=== PATIENT | male | born 1970 | race Hispanic/Latino ===

== ENCOUNTER 2020-06-06 10:14 | Inpatient (IN) | payer BC, SELFPAY ==
[2020-06-06] VITALS (33 sets, daily range): BP systolic 115–222; BP diastolic 69–127; PULSE 61–128; RESP 12–31; TEMP 35.9–37.1; O2SAT 89–99
--- NOTE | ~2020-06-06 | US_ITS ---
EXAMINATION: US right upper quadrant DATE: 06/08/2020 10:42 INDICATION: Abnormal liver function tests. TECHNIQUE: Multiple grayscale and Doppler ultrasound images of the abdomen were obtained. COMPARISON: CT abdomen and pelvis 04/20/2009 FINDINGS: The visualized portions of the head of the pancreas are normal. There is diffuse hepatic st eatosis. No liver surface nodularity. There is normal flow in main portal vein. The gallbladder is no rmal in size. No gallstones or gallbladder wall thickening. There was no sonographic Miramontes sign. The common duct is normal and measures 4 mm. IMPRESSION: 1. Diffuse hepatic steatosis. Reviewed, dictated and finalized at location A.
--- NOTE | ~2020-06-06 | XR_ITS ---
XR chest 2V DATE: 06/08/2020 13:36 INDICATION: Elevated troponin. Seizure. TECHNIQUE: PA and lateral views COMPARISON: 04/20/2009 PA and lateral views FINDINGS: Normal heart size. Mild aortic unfolding. No hilar or mediastinal enlargement. No pulmonary infiltrate or consolidation, pleural effusion or pulmonary vascular congestion or pneumo thorax. IMPRESSION: No active cardiopulmonary disease Reviewed, dictated and finalized at location B.
--- NOTE | ~2020-06-06 | CT_ITS ---
EXAMINATION: CT brain wo [facility] EXAM DATE: 06/06/2020 11:13 INDICATION: Altered mental status. Seizure. TECHNIQUE: Spiral CT of the head was performed without contrast. Axial, coronal and sagittal images were reviewed. The dose-length product (DLP) for this examination was 605.33 mGy-cm. The exposure w as tailored according to patient size, and iterative reconstruction (ASIR) was used as additional dos e reduction technique. There is no prior study for comparison. FINDINGS: Small old right frontoparietal infarction. There is no acute intraparenchymal hemorrhage. No evidence of intraparenchymal brain mass lesion. No evidence of acute infarction. There is no mas s effect or midline shift. The ventricles are normal in size. There are no extra-axial collections. There are no acute calvarial fractures. There is an old right medial orbital wall fracture. Small r ight parietal swelling/contusion. The visualized sinuses and mastoid air cells are well aerated. IMPRESSION: 1. 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 2. Small right parietal swelling/contusion. Reviewed, dictated and finalized at location A.
--- NOTE | 2020-06-06 10:24 | ECG_ITS ---
Measurements Intervals [place] Rate: 62 P: 9 KS: 159 QRS: 66 QRSD: 111 T: 64 QT: 509 QTc: 519 Interpretive Statements SINUS RHYTHM INTRAVENTRICULAR CONDUCTION DELAY PROLONGED QT INTERVAL ABNORMAL ECG Electronically Signed On 06-06-2020 10:36:45 CDT by Connor Rodriguez D.O.
[2020-06-06] MEDS: SODIUM CHLORIDE 0.9% IV 1,000 ML 999 ML IV CONT (10:33)
--- NOTE | 2020-06-06 10:34 | ED.AMS ---
HPI - Altered Mental Status General Chief Complaint: Altered Mental Status Stated Complaint: ALOC Time Seen by Provider: 06/06/20 10:16 History of Present Illness HPI narrative: Found altered by family this morning. Unknown how long he had been this way. Mental status has improved, although he is still somewhat confused. He did bite his tongue. No other obvious injury. He has no seizure history. He is a daily drinker. He drinks beer. Unknown how much or when he had his last drink. No recent illness or fever. Mildly low oxygen saturation. History limited by mental status and language barrier. Related Data Home Medications Medication Instructions Recorded Confirmed losartan 100 mg PO DAILY 06/06/20 06/06/20 Allergies Allergy/AdvReac Type Severity Reaction Status Date / Time No Known Allergies Allergy Unknown Verified 06/06/20 14:24 Review of Systems Review of Systems: All systems reviewed & are unremarkable except as noted in HPI and below Constitutional: Constitutional: Denies fever(s) and Denies weakness Cardiovascular: Cardiovascular: Denies chest pain Respiratory: Respiratory: Denies dyspnea Gastrointestinal: Gastrointestinal: Denies abdominal pain and Denies nausea Musculoskeletal: Musculoskeletal: Denies back pain Neurologic: Reports confusion PMFSH Past Medical History Medical History (Updated 06/06/20 @ 19:10 by Darius Dhaliwal MD) Alcoholism CVA (cerebral vascular accident) HTN (hypertension) Right wrist fracture Tobacco abuse Surgical History Surgical History (Updated 06/06/20 @ 16:12 by Princess Plascencia NP) H/O abdominal surgery the patient stated that horse bucked him off Family History Family History Mother Cancer Father Hypercholesteremia Social History Social History (Updated 06/06/20 @ 16:13 by Princess Plascencia NP) Social History: 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 He is listed as being . He is listed as being a full code. The patient tells me that he drinks 12 beers a day. He denies any marijuana or illicit drug use. Smoking packs per day: 0.1 Smoking cigarettes per day: 2.0 Smoking status: Current some day smoker Tobacco type: cigarettes Second hand tobacco smoke exposure: No Alcohol intake: current Drinks per week: 84 Substance use: never Substance use type: does not use Gender identity (if verbalized by the patient): Male Spiritual care concerns: No Exam Const: General: no acute distress and alert Orientation/consciousness: patient oriented x3 HENMT: Other: contusion to the tip of the tongue Eyes: Pupils: Equal, round and reactive pupils present EOM: EOMs intact bilaterally Resp: Effort & Inspection: normal respiratory effort Auscultation: clear to auscultation bilaterally Cardio: Rate: regular rate Rhythm: regular rhythm GI: GI Palp: Yes Soft to palpation and No Tenderness to palpation present (GI) Neuro: General: moves all extremities, no focal motor deficits and CN's II-XI intact bilaterally Other: Oriented to self and location Extrem: General: normal to inspection Course Vital Signs Vital signs: Vital Signs Temperature 37.1 C 06/06/20 10:16 Pulse Rate 61 06/06/20 10:16 Respiratory Rate 16 06/06/20 10:16 Blood Pressure 186/97 H 06/06/20 10:16 Pulse Oximetry 89 L 06/06/20 10:16 Temperature 35.9 C L 06/06/20 16:00 Pulse Rate 88 06/06/20 16:09 Respiratory Rate 12 06/06/20 16:00 Blood Pressure 189/117 H 06/06/20 16:34 Pulse Oximetry 98 06/06/20 16:00 MDM - Altered Mental Status MDM Narrative Medical decision making narrative: Given the tongue biting and improving confusion he most likely had a seizure. This could be due to alcohol withdrawal, hyponatremia, prolonged QT with resultant arrhythmia. I will obtain CT and labs. He will most likely need to be admitted. CT sh
[2020-06-06 10:53] LABS: Basophils Absolute Auto 0.1 K/mm3 (0.0-0.1); Basophils Percent Auto 1.1 % (0.2-1.2); Eosinophils Percent Auto 0.3 % (0-4.4); Hematocrit 48.4 % (42.0-52.0); Hemoglobin 16.9 g/dL (14.0-18.0); Immature Granulocyte Absolute 0.04 K/mm3 (0.00-0.031); Immature Granulocyte Percent A 0.6 % (0-0.5); Lymphocytes Absolute Auto 0.87 K/mm3 (0.9-3.2); Lymphocytes Percent Auto 13.5 % (18.3-44.2); Mean Corpuscular HGB Conc 34.9 g/dl (32-36); Mean Corpuscular Volume 91.7 fl (80-100); Mean Platelet Volume 9.3 fl (7.4-10.4); Monocytes Absolute Auto 0.7 K/mm3 (0.1-0.6); Monocytes Percent Auto 10.4 % (2.6-8.5); Neutrophils Absolute Auto 4.8 K/mm3 (1.3-6.7); Neutrophils Percent Auto 74.1 % (45.5-73.1); Platelet Count Result 192 k/mm3 (150-375); Red Blood Count 5.28 M/mm3 (4.6-6.20); Red Cell Distribution Width 11.9 % (11.5-14.5); White Blood Count 6.4 K/mm3 (4.5-10.0)
[2020-06-06 11:00] LABS: Alveolar/Arterial O2 Gradient 129.2 mmHg; Base Excess ABG -5.4 mEq/l (+/-2.0); Device NASAL CANNULA; Fractional Inspired Oxygen 36 %; HCO3 ABG 18.3 mEq/l (22.0-26.0); Modified Allen's Test Pass; Oxygen Content ABG 21.7 %vol (16.0-22.0); Oxyhemoglobin 94.9 % THb (90.0-100.0); PCO2 ABG 31.3 mmHg (35.0-45.0); PO2 ABG 91.2 mmHg (80.0-100.0); PO2 FiO2 Ratio Arterial Blood 2.53 %; Site Drawn RIGHT RADIAL; Total Hemoglobin 16.2 g/dL (12.0-18.0); pH ABG 7.384 (7.350-7.450)
[2020-06-06 11:02] LABS: INR 1.1; Prothrombin Time 13.8 Seconds (11.1-14.7)
[2020-06-06 11:03] LABS: Partial Thromboplastin Time 25.8 SECONDS (22.3-36.8)
[2020-06-06 11:04] LABS: Alanine Aminotransferase 88 U/L (4-50); Albumin Level 4.5 g/dL (3.5-5.1); Alkaline Phosphatase 109 U/L (38-126); Anion Gap 19 mmol/L (8-16); Aspartate Amino Transferase 157 U/L (17-59); Blood Urea Nitrogen 9 mg/dL (9-20); Calcium 9.4 mg/dL (8.4-10.2); Carbon Dioxide 21 mmol/L (22-30); Chloride 98 mmol/L (98-107); Estimated CRCL calculation 62 ml/min; Estimated Glomerular Filt Rate 59; Glucose 159 mg/dL (75-110); Magnesium 1.8 mg/dL (1.6-2.3); Potassium 3.5 mmol/L (3.4-5.0); Sodium 138 mmol/L (137-145)
[2020-06-06 11:07] LABS: Lactic Acid Reflex 8.3 mmol/L (0.7-2.1)
[2020-06-06 11:09] LABS: Add Urine Microscopic? YES; Appearance Urine Clear (Clear); Bilirubin Urine Negative (Negative); Blood Urine Negative (Negative); Color Urine Yellow (Yellow); Glucose Urine UA 1+ mg/dL (Negative); Ketones Urine Trace mg/dL (Negative); Leukocyte Esterase Ur Negative LEU/UL (Negative); Mucus Urine Rare /lpf; Nitrate Urine Negative (Negative); Protein Urine 3+ mg/dL (Negative); RBC Urine 0-2 /hpf (0-2); Specific Grav Ur 1.019 (1.001-1.035); Urobilinogen Urine Negative mg/dL (<2.0); WBC Urine 0-3 /hpf
[2020-06-06 11:16] LABS: Ethanol 35 mg/dL (<10)
[2020-06-06 11:18] LABS: Troponin I 0.096 ng/mL (0.000-0.034)
[2020-06-06 11:19] LABS: Amphetamine Screen Urine Negative (Negative); Barbiturate Screen Urine Negative (Negative); Benzodiazepines Screen Urine Negative (Negative); Cannabinoid Screen Urine Negative (Negative); Cocaine Screen Urine Negative (Negative); Methadone Screen Urine Negative (Negative); Opiate Screen Urine Negative (Negative); Phencyclidine Screen Urine Negative (Negative)
[2020-06-06] MEDS: LACTATED RINGERS 1,000 ML 125 ML IV CONT (12:34)
[2020-06-06] MEDS: MAGNESIUM SULF 2 GM/WATER 50ML 2 GM/50 ML BAG IVPB (12:35)
[2020-06-06] MEDS: levETIRAcetam 1000MG/NACL100ML 1,000 MG/100 ML BAG 400 MG IVPB (12:35)
[2020-06-06] MEDS: LORazepam INJ (*CRX) 2 MG/ML VIAL IV PUSH (12:39)
[2020-06-06] MEDS: LABETALOL HCL INJ 100 MG/20 ML VIAL 10 MG IV PUSH (13:32)
[2020-06-06 13:49] LABS: Reflex Lactic Acid Yes or No Add Lactic
[2020-06-06 14:24] LABS: Lactic Acid 1.4 mmol/L (0.7-2.1)
--- NOTE | 2020-06-06 14:24 | ADMGEN ---
This patient, Skinny Russell, was admitted to IMU Room 211-01. Patient/family oriented to hospital policies and general routines including ID bracelet, bed and alarms, visiting hours, pain management, procedures, bathroom and other care routines, personal items, smoking policy, room service/diet, and visiting hours. Valuables list has been completed. Information on how to activate the Rapid Response Team has been discussed. Patient/Family are encouraged to report perceived risks to care and to ask questions if they do not understand what they are told or what they should do.
--- NOTE | 2020-06-06 16:07 | PM.IMHP ---
H&P: HPI History of Present Illness Date/Time: 06/06/20 16:07 Chief complaint: Seizure, alcohol abuse, elevated troponin, prolong Narrative: Skinny Russell is a 49 year old male Who has a history of drinking 12 beers a day. The patient can speak some Gambian but mainly speaks Vietnamese. The patient's family found the patient to be altered this morning. They did not know how long he had been this way. The mental status did improve some when he came here but was still somewhat confused. He did bite his tongue. He had no other obvious injury. He has no history of having any seizure disorder. Patient thought that he drink his last beer yesterday. Patient has a history of hypertension is not known when he took his medicine last. Lactic initially was 8.3 and then 1.4. Tox screen his alcohol level was still 35 the rest was negative. Head CT shows the old small frontal parietal infarction. Small right parietal swelling contusion. Patient's blood pressure 196/117 heart rate was 128 but now in the 80s. Patient was started on IV fluids in the emergency room. He was given Ativan and labetalol and magnesium in the emergency room as well. Date of service 06/06/2020 Review of Systems Review of Systems: All systems reviewed & are unremarkable except as noted in HPI and below Constitutional: Constitutional: Reports as per HPI and Reports no additional constitutional complaints Eyes: Eyes: Reports as per HPI and Reports no additional eye complaints ENT: Reports system reviewed and no additional complaints, except as documented and Reports Normal hearing present Cardiovascular: Cardiovascular: Reports no additional cardiovascular complaints Respiratory: Respiratory: Reports no additional respiratory complaints and Reports no additional respiratory complaints Gastrointestinal: Gastrointestinal: Reports as per HPI and Reports no additional gastrointestinal complaints Musculoskeletal: Musculoskeletal: Reports no additional musculoskeletal complaints Integumentary/Breasts: Skin/Breast: Reports system reviewed and no additional complaints, except as docu and Reports as per HPI Neurologic: Reports system reviewed and no additional complaints, except as documented, Reports as per HPI and Reports Normal hearing present Psychiatric: Psychiatric: Reports no additional psychiatric complaints and Reports as per HPI Endocrine: Endocrine: Reports no additional endocrine complaints Hematologic/Lymphatic: Hematologic/Lymphatic: Reports no additional hematologic/lymphatic complaints Allergic/Immunologic: Allergic/Immunologic: Reports no additional allergic/immunologic complaints [facility] Past Medical History Medical History (Updated 06/06/20 @ 16:21 by Princess Plascencia NP) Alcoholism CVA (cerebral vascular accident) HTN (hypertension) Right wrist fracture Tobacco abuse Surgical History Surgical History (Updated 06/06/20 @ 16:12 by Princess Plascencia NP) H/O abdominal surgery the patient stated that horse bucked him off Family History Family History Mother Cancer Father Hypercholesteremia Social History Social History (Updated 06/06/20 @ 16:13 by Princess Plascencia NP) Social History: 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 He is listed as being . He is listed as being a full code. The patient tells me that he drinks 12 beers a day. He denies any marijuana or illicit drug use. Smoking packs per day: 0.1 Smoking cigarettes per day: 2.0 Smoking status: Current some day smoker Tobacco type: cigarettes Second hand tobacco smoke exposure: No Alcohol intake: current Drinks per week: 84 Substance use: never Substance use type: does not use Gender identity (if verbalized by the patient): Male Spiritual care concerns: No Meds Home Medications and Allergies Home Medications Medication Instructions Recorded Con
[2020-06-06] MEDS: LABETALOL HCL INJ 100 MG/20 ML VIAL 20 MG IV PUSH (16:09)
[2020-06-06 17:02] LABS: Creatine Kinase 265 U/L (55-170)
[2020-06-06 17:04] LABS: Troponin I 0.241 ng/mL (0.000-0.034)
[2020-06-06 19:02] LABS: Troponin I 0.311 ng/mL (0.000-0.034)
[2020-06-06] MEDS: hydrALAZINE HCL 20 MG/ML VIAL 10 MG IV PUSH (20:34)
[2020-06-06] MEDS: levETIRAcetam Tablet 250 MG, levETIRAcetam Tablet 500 MG 750 MG PO (20:34)
[2020-06-06] MEDS: LORazepam INJ (*CRX) 2 MG/ML VIAL 0.5 MG IV PUSH (23:34)
[2020-06-07] VITALS (15 sets, daily range): BP systolic 157–215; BP diastolic 98–141; PULSE 77–95; RESP 18–20; TEMP 36.1–36.7; O2SAT 97–100
[2020-06-07] MEDS: hydrALAZINE HCL 20 MG/ML VIAL IV PUSH (04:40)
[2020-06-07] MEDS: chlordiazePOXIDE (*CRX) 25 MG CAPSULE PO (04:40)
[2020-06-07 05:32] LABS: Basophils Absolute Auto 0.1 K/mm3 (0.0-0.1); Basophils Percent Auto 0.7 % (0.2-1.2); Eosinophils Percent Auto 0.1 % (0-4.4); Hematocrit 49.4 % (42.0-52.0); Immature Granulocyte Absolute 0.03 K/mm3 (0.00-0.031); Immature Granulocyte Percent A 0.4 % (0-0.5); Lymphocytes Absolute Auto 0.92 K/mm3 (0.9-3.2); Mean Corpuscular HGB Conc 34.4 g/dl (32-36); Mean Corpuscular Hemoglobin 31.8 pg (26-34); Mean Corpuscular Volume 92.5 fl (80-100); Mean Platelet Volume 9.5 fl (7.4-10.4); Monocytes Percent Auto 13.8 % (2.6-8.5); Neutrophils Absolute Auto 5.1 K/mm3 (1.3-6.7); Platelet Count Result 154 k/mm3 (150-375); Red Blood Count 5.34 M/mm3 (4.6-6.20); White Blood Count 7.1 K/mm3 (4.5-10.0)
[2020-06-07 05:49] LABS: Alanine Aminotransferase 87 U/L (4-50); Albumin Level 4.3 g/dL (3.5-5.1); Alkaline Phosphatase 86 U/L (38-126); Anion Gap 7 mmol/L (8-16); Aspartate Amino Transferase 108 U/L (17-59); Bilirubin,Total 1.6 mg/dL (0.2-1.3); Blood Urea Nitrogen 13 mg/dL (9-20); Calcium 9.2 mg/dL (8.4-10.2); Carbon Dioxide 30 mmol/L (22-30); Chloride 98 mmol/L (98-107); Estimated CRCL calculation 79 ml/min; Estimated Glomerular Filt Rate > 60; Glucose 113 mg/dL (75-110); Lactate Dehydrogenase 967 U/L (313-618); Magnesium 2.2 mg/dL (1.6-2.3); Phosphorus 2.9 mg/dL (2.5-4.5); Sodium 135 mmol/L (137-145)
[2020-06-07] MEDS: THIAMINE HCL 100 MG TABLET PO (10:28)
[2020-06-07] MEDS: LOSARTAN POTASSIUM 100 MG TABLET PO (10:28)
[2020-06-07] MEDS: levETIRAcetam Tablet 250 MG, levETIRAcetam Tablet 500 MG 750 MG PO ×2 (10:28→20:37)
[2020-06-07] MEDS: hydrALAZINE HCL 20 MG/ML VIAL 10 MG IV PUSH ×2 (10:28→20:38)
[2020-06-07] MEDS: FOLIC ACID 1 MG TABLET PO (10:28)
--- NOTE | 2020-06-07 11:10 | WPDNEUROLOGY ---
Neurology EEG Report General Information Date of Study: 06/07/20 TEST EEG DIAGNOSIS Seizures CONDITION OF RECORDING Awake,drowsy and sleep EEG NUMBER [id number] CLINICAL HISTORY Patient was found with altered mental status yesterday in the morning at present is somewhat better EEG DESCRIPTION basic resting occipital frequency consists of moderate amount of low voltage 9 to 11 hertz per 2nd alpha admixed with low-voltage 15 to 18 hertz per 2nd beta activity. Bilateral symmetrical sleep activity seen during sleep with intermittent EKG artifact hyperventilation not done photic stimulation not done. Non paroxysmal. Nonfocal. Nonlateralizing. IMPRESSION No significant abnormalities noted
--- NOTE | 2020-06-07 11:30 | WPDNEURCNPN ---
Assessment and Plan Assessment and plan (1) Elevated troponin: Code(s): R79.89 - Other specified abnormal findings of blood chemistry Status: Acute (2) HTN (hypertension): Code(s): I10 - Essential (primary) hypertension Status: Chronic (3) Seizure: Code(s): R56.9 - Unspecified convulsions Status: Acute (4) Tobacco abuse: Code(s): Z72.0 - Tobacco use Status: Chronic (5) Alcoholism: Code(s): F10.20 - Alcohol dependence, uncomplicated Status: Chronic Additional Plan chronic alcohol related seizure we can start him on anticonvulsant Keppra 500 mg b.i.d. but if he does not quit drinking it will not help him in the long run if any further question arises please do not hesitate to contact me Consult date: 06/07/20 Time Seen: 11:15 HPI: Skinny Russell is a 49 year old male admitted to the hospital with the information that patient was found to be with change in mental status in the morning. by the time he came to the emergency room still he was confused. reportedly he did bite his tongue but had no other obvious injuries .patient has no history of seizure disorder as per se but he does have a history of 1. Hypertension 2. Alcohol abuse. initial evaluation revealed him to have elevated troponin elevated, lactic acid 8.3 which came down to 1.4, CT scan documented the old small frontal parietal infarction and clinically was noted to have right parietal swelling and contusion tachycardic but the heart rate came down to 80s ,patient does have a history of alcoholism with hypertension and has undergone abdominal surgery in the past Review of Systems Review of Systems: All systems reviewed & are unremarkable except as noted in HPI and below PMFSH Past Medical History Medical History (Updated 06/06/20 @ 19:10 by Darius Dhaliwal MD) Alcoholism CVA (cerebral vascular accident) HTN (hypertension) Right wrist fracture Tobacco abuse Surgical History Surgical History (Updated 06/06/20 @ 16:12 by Princess Plascencia NP) H/O abdominal surgery the patient stated that horse bucked him off Family History Family History Mother Cancer Father Hypercholesteremia Social History Social History (Updated 06/06/20 @ 16:13 by Princess Plascencia NP) Social History: 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 He is listed as being . He is listed as being a full code. The patient tells me that he drinks 12 beers a day. He denies any marijuana or illicit drug use. Smoking packs per day: 0.1 Smoking cigarettes per day: 2.0 Smoking status: Current some day smoker Tobacco type: cigarettes Second hand tobacco smoke exposure: No Alcohol intake: current Drinks per week: 84 Substance use: never Substance use type: does not use Gender identity (if verbalized by the patient): Male Spiritual care concerns: No Meds Home Medications and Allergies Home Medications Medication Instructions Recorded Confirmed Type losartan 100 mg PO DAILY 06/06/20 06/06/20 History Allergies Allergy/AdvReac Type Severity Reaction Status Date / Time No Known Allergies Allergy Unknown Verified 06/06/20 14:24 Vital Signs Vital Signs - 24 hr 06/06/20 11:31 06/06/20 11:32 06/06/20 11:45 Temperature Pulse Rate 79 81 78 Respiratory Rate 22 H 22 H 15 Blood Pressure 194/117 H Pulse Oximetry 96 98 96 06/06/20 11:46 06/06/20 12:00 06/06/20 12:01 Temperature Pulse Rate 82 85 91 Respiratory Rate 21 H 17 17 Blood Pressure 189/116 H 193/126 H Pulse Oximetry 98 98 06/06/20 12:15 06/06/20 12:16 06/06/20 13:32 Temperature Pulse Rate 80 81 128 H Respiratory Rate 22 H 19 Blood Pressure 207/127 H Pulse Oximetry 98 97 06/06/20 13:46 06/06/20 14:00 06/06/20 14:10 Temperature 36.6 C Pulse Rate 96 84 80 Respiratory Rate 18 12 Blood Pressure 196/
[2020-06-07] MEDS: POTASSIUM CHLORIDE 20 MEQ TABLET 40 MEQ PO (12:27)
--- NOTE | 2020-06-07 18:47 | PM.IMPN ---
Progress Note: A&P Assessment and Plan (1) Seizure: Code(s): R56.9 - Unspecified convulsions Status: Acute Assessment and Plan: Patient has no previous history of having a seizure. Most likely this is alcohol-related seizure. He has had hx of CVA by CT so possibly new onset sz disorder. Neurology was consulted and recommended continuing the Keppra. Continue seizure precautions. Through the viscose cellar worker, patient was educated that he cannot drive. He voices understanding of this. (2) Alcoholism: Code(s): F10.20 - Alcohol dependence, uncomplicated Status: Chronic Assessment and Plan: The patient stated he drinks about 12-18 beers a day every day. His alcohol level was 35 on admission. CIWA running up to 7 but is only required the Librium once in the Ativan once. Continue thiamine and folate. Patient has been educated about the benefits of stain from alcohol use. Also explained to him that the anti seizure medication will not work if he continues to drink. He voices understanding of this through the viscose cellar worker. (3) Elevated troponin: Code(s): R79.89 - Other specified abnormal findings of blood chemistry Status: Acute Assessment and Plan: Patient's troponin has climbed to 0.3. Elevated Trop probably related to the elevated BP. EKG showing prolonged QT 519. Mag 2.2. Potassium low at 3 and this was replaced. Will repeat EKG. Consider stress test tomorrow. Add ASA. Check lipid panel (4) HTN (hypertension): Code(s): I10 - Essential (primary) hypertension Status: Chronic Assessment and Plan: BP markedly elevated at times to 222/122. His losartan has gustavo continued. He is receiving IV hydralazine at times. Will add Norvasc and consider scheduling the hydralazine or using HCTZ. (5) Elevated LFTs: Code(s): R79.89 - Other specified abnormal findings of blood chemistry Status: Acute Assessment and Plan: AST and ALT elevated on admission. Levels better today. Suspect related to alcohol abuse. Will check hepatits panel and RUQ to assess for cirrhosis (6) Tobacco abuse: Code(s): Z72.0 - Tobacco use Status: Chronic Assessment and Plan: patient was educated about the benefits of smoking cessation through the viscose cellar worker. (7) CVA (cerebral vascular accident): Code(s): I63.9 - Cerebral infarction, unspecified Status: Acute Assessment and Plan: CT of the brain showing old CVA. No acute findings. Will start aspirin. Check lipid panel. (8) DVT prophylaxis: Code(s): Z29.9 - Encounter for prophylactic measures, unspecified Status: Acute Assessment and Plan: Lovenox. Additional Plan EKG reviewed showing LVH with QTc 471. Check Echo Subjective Date/time seen: 06/07/20 18:47 Interval history: Date of service 06/07 49-year-old male with history of alcohol abuse here for seizures and found to have elevated troponin. Assuming care. Chart reviewed. History obtained with the help of an viscose cellar worker. Patient feels better than yesterday. Denies shortness of breath. He does have a cough that is productive. Denies any chest pain or abdominal pain. No nausea or vomiting. He drinks 18 alcoholic drinks per day. He denies any chest pain with activity. No history of seizures. He smokes 1 cigarette per week. Exam Narrative: Exam Narrative: AF 98.1 173/108 88 18 99% ra Gen - NARD Chest - CTA bilaterally, nml RR CV - RRR S1/S2; Tele showing no significant dysrhythmias Abd - Soft, NT/ND, Positive BS Ext - No pedal edema Psych - Nml mood and affect. no tremors. Skin - Warm and dry; No diaphoresis Objective Data Vital Signs Vital Signs: Vital Signs - 24 hr 06/06/20 19:55 06/06/20 20:00 06/06/20 22:00 Temperature 97.9 F Pulse Rate 80 87 87 Respiratory Rate 20 20 Blood Pressure 212/120 H 212/120 H Pulse Oximetry 97 97
--- NOTE | 2020-06-07 18:58 | ECG_ITS ---
Measurements Intervals [place] Rate: 87 P: 9 UT: 155 QRS: 77 QRSD: 93 T: 85 QT: 426 QTc: 515 Interpretive Statements SINUS RHYTHM LEFT VENTRICULAR HYPERTROPHY AND ST-T CHANGE BORDERLINE T WAVE ABNORMALITY- HIGH LATERAL LEADS PROLONGED QT INTERVAL ABNORMAL ECG Electronically Signed On 06-07-2020 19:40:10 CDT by Connor Rodriguez D.O.
[2020-06-07] MEDS: ASPIRIN 81 MG CHEWABLE TABLET PO (21:38)
[2020-06-07] MEDS: amLODIPine BESYLATE 5 MG TABLET PO (21:39)
[2020-06-07] MEDS: ENOXAPARIN 40 MG/0.4 ML SYRINGE SUB-Q (21:39)
[2020-06-08] VITALS (18 sets, daily range): BP systolic 151–212; BP diastolic 95–135; PULSE 71–107; RESP 18–20; TEMP 35.7–36.6; O2SAT 96–98
--- NOTE | 2020-06-08 | ECHO_ITS ---
Patient Info Name: Skinny Russell Age: 49 years : 1970 Gender: Male Ht: 69 in Wt: 188 lbs BSA: 2.05 m2 HR: 75 bpm BP: 212 / 135 mmHg Heart Rhythm: Sinus Rhythm Technical Quality: Good Exam Date: 06/08/2020 8:07 AM Exam Location: [facility] Pulmonary Patient Status: Inpatient Admit Date: 06/06/2020 Staff Ordering Physician: Donny Black MD Fruit Rancher: Dimas Miramontes, LOLLY, RT Attending Provider: Ashley Ludwig MD Exam Type: CA echo doppler color flow Study Info Indications I50.9 - Heart failure, unspecified Complete two-dimensional, color flow and Doppler transthoracic echocardiogram is performed. Summary 1. Complete two-dimensional, color flow and Doppler transthoracic echocardiogram is performed. 2. There is mild to moderately increased left ventricular wall thickness. 3. The left ventricular diastolic function is grade I diastolic dysfunction. 4. Global longitudinal strain is severely elevated at -9 %. 5. Unable to estimate PA systolic pressure due to poor spectral resolution of tricuspid regurgitant jet velocity. Left Ventricle Left ventricular chamber dimension is normal. There is mild to moderately increased left ventricular wall thickness. The left ventricular diastolic function is grade I diastolic dysfunction. Global longitudinal strain is severely elevated at -9 %. Right Ventricle Right ventricular chamber dimension is normal. Right ventricular systolic function is normal. Left Atria Left atrial chamber dimension is normal. Right Atria Right atrial chamber dimension is normal. Aortic Valve The aortic valve is trileaflet. There is no aortic valve stenosis. There is no aortic valve regurgitation. Pulmonic Valve The pulmonic valve is not well visualized. There is trace pulmonic regurgitation. Mitral Valve The mitral valve has normal leaflets. There is trace mitral valve regurgitation. Tricuspid Valve The tricuspid valve leaflets are normal. There is trace tricuspid valve regurgitation. Unable to estimate PA systolic pressure due to poor spectral resolution of tricuspid regurgitant jet velocity. Pericardium/Pleural The pericardium appears normal. There is no pericardial effusion. Inferior Vena Cava Normal inferior vena cava with <50% collapse upon inspiration consistent with elevated right atrial pressure, 10 mmHg. Aorta The aortic root size at the sinus of Valsalva is normal. Left Ventricular Outflow Tract Name Value Normal LVOT 2D LVOT Diameter 2.0 cm LVOT Doppler LVOT Peak Gradient 4 mmHg LVOT Mean Gradient 2 mmHg LVOT VTI 15 cm LVOT VTI/AV VTI Ratio 0.8 LVOT Stroke Volume 45 ml LVOT CO 3.3 l/min LVOT CI 1.6 l/min/m2 Mitral Valve Name Value Normal
[2020-06-08] MEDS: LABETALOL HCL INJ 100 MG/20 ML VIAL 10 MG IV PUSH ×2 (05:46→06:46)
[2020-06-08 06:36] LABS: Hematocrit 50.8 % (42.0-52.0); Hemoglobin 17.4 g/dL (14.0-18.0); Mean Corpuscular HGB Conc 34.3 g/dl (32-36); Mean Corpuscular Hemoglobin 32.4 pg (26-34); Mean Corpuscular Volume 94.6 fl (80-100); Mean Platelet Volume 9.8 fl (7.4-10.4); Platelet Count Result 134 k/mm3 (150-375); Red Blood Count 5.37 M/mm3 (4.6-6.20); Red Cell Distribution Width 12.2 % (11.5-14.5); White Blood Count 4.6 K/mm3 (4.5-10.0)
[2020-06-08 06:42] LABS: Alanine Aminotransferase 270 U/L (4-50); Albumin Level 4.2 g/dL (3.5-5.1); Alkaline Phosphatase 84 U/L (38-126); Anion Gap 11 mmol/L (8-16); Aspartate Amino Transferase 297 U/L (17-59); Bilirubin,Total 1.4 mg/dL (0.2-1.3); Blood Urea Nitrogen 17 mg/dL (9-20); Calcium 9.4 mg/dL (8.4-10.2); Carbon Dioxide 29 mmol/L (22-30); Chloride 100 mmol/L (98-107); Estimated CRCL calculation 66 ml/min; Estimated Glomerular Filt Rate > 60; Glucose 99 mg/dL (75-110); HDL Direct 66 mg/dL; Potassium 3.1 mmol/L (3.4-5.0); Sodium 140 mmol/L (137-145); Triglycerides 214 mg/dL (<150)
[2020-06-08 06:46] LABS: LDL Cholesterol Direct 233 mg/dL
[2020-06-08 06:53] LABS: Troponin I 0.147 ng/mL (0.000-0.034)
[2020-06-08 07:19] LABS: Hepatitis B Surface Antigen Negative (Negative)
[2020-06-08 07:20] LABS: Cholesterol 344 mg/dL (0-200)
[2020-06-08 07:24] LABS: HAV RESULT Negative (Negative); Hepatitis B Core IgM Result Negative (Negative)
[2020-06-08 07:36] LABS: Hepatitis C Virus Antibody Negative (Negative)
[2020-06-08] MEDS: levETIRAcetam Tablet 250 MG, levETIRAcetam Tablet 500 MG 750 MG PO ×2 (09:09→22:38)
[2020-06-08] MEDS: POTASSIUM CHLORIDE 20 MEQ TABLET 40 MEQ PO (09:09)
[2020-06-08] MEDS: THIAMINE HCL 100 MG TABLET PO (09:09)
[2020-06-08] MEDS: FOLIC ACID 1 MG TABLET PO (09:09)
[2020-06-08] MEDS: amLODIPine BESYLATE 5 MG TABLET PO ×2 (09:09→13:40)
[2020-06-08] MEDS: ASPIRIN 81 MG CHEWABLE TABLET PO (09:09)
[2020-06-08] MEDS: LOSARTAN POTASSIUM 100 MG TABLET PO (09:09)
[2020-06-08] MEDS: hydrALAZINE HCL 25 MG TABLET PO ×2 (13:40→16:52)
--- NOTE | 2020-06-08 18:17 | PM.IMPN ---
Progress Note: A&P Assessment and Plan (1) Seizure: Code(s): R56.9 - Unspecified convulsions Status: Acute Assessment and Plan: Patient has no previous history of having a seizure. Most likely this is alcohol-related seizure. He has had hx of CVA by CT so possibly new onset sz disorder. Neurology was consulted and recommended continuing the Keppra. Continue seizure precautions. Through the agriculture worker yesterday, patient was educated that he cannot drive. He voices understanding of this. Continue Keppra (2) Prolonged QT interval: Code(s): R94.31 - Abnormal electrocardiogram [ECG] [EKG] Status: Acute Assessment and Plan: Repeat EKG 06/07 preliminary reading showed improved QTc but offical read showing persistent prolonged QTc 515. Not taking medications that could result in this. Echo structural showing evidence of LVH. Potassium low again and thsi was replaced. Repeat electrolytes in the morning. Repeat EKG. Cardiology consult. (3) Alcoholism: Code(s): F10.20 - Alcohol dependence, uncomplicated Status: Chronic Assessment and Plan: The patient stated he drinks about 12-18 beers a day every day. His alcohol level was 35 on admission. CIWA running 0-1 now. Continue thiamine and folate. Patient has been educated about the benefits of abstaining from alcohol use. Also explained to him that the anti seizure medication will not work if he continues to drink. He voiceed understanding of this through the agriculture worker yesterday. Explained today through the interpretor that he is developing liver disease most likely related to his alcohol use. He again voices understanding of this. (4) Elevated troponin: Code(s): R79.89 - Other specified abnormal findings of blood chemistry Status: Acute Assessment and Plan: Patient's troponin has climbed to 0.3. Elevated Trop probably related to the elevated BP and seizure. EKG showing prolonged QT 519. Mag 2.2. Potassium low at 3 and this was replaced. Repeat EKG again showing prolonged QT - as above. TG 214, TC 344, LDL 233, HDL 66. Hold lipitor givne the worsenig LFTs. (5) HTN (hypertension): Code(s): I10 - Essential (primary) hypertension Status: Chronic Assessment and Plan: BP markedly elevated at times to 222/122. His losartan has gustavo continued. He is receiving IV hydralazine at times. We added Norvasc. Will increase Norvasac and add Hydralazine. No beta january given the QT findings. BP better this evening. Continue to advance medications to keep BP in the 170-190 range for now. (6) Elevated LFTs: Code(s): R79.89 - Other specified abnormal findings of blood chemistry Status: Acute Assessment and Plan: AST and ALT elevated on admission. Levels improved but now worse today. Hepatitis panel negative. RUQ showing diffuse hepatic steatosis related to alcohol abuse. Discussed at length with the patient and about the risks of continuing to drink. (7) Tobacco abuse: Code(s): Z72.0 - Tobacco use Status: Chronic Assessment and Plan: patient was educated about the benefits of smoking cessation through the agriculture worker. (8) CVA (cerebral vascular accident): Code(s): I63.9 - Cerebral infarction, unspecified Status: Acute Assessment and Plan: CT of the brain showing old CVA. No acute findings. Continue aspirin. (9) DVT prophylaxis: Code(s): Z29.9 - Encounter for prophylactic measures, unspecified Status: Acute Assessment and Plan: Lovenox. Subjective Date/time seen: 06/08/20 18:17 Interval history: Date of service 06/08 49-year-old male with history of alcohol abuse here for seizures and found to have elevated troponin. History obtained with the help of an agriculture worker. Patietn feels well. Eating well. No n/v. no CP. Mild headache but better after he ate. no visio
[2020-06-08] MEDS: ENOXAPARIN 40 MG/0.4 ML SYRINGE SUB-Q (22:38)
[2020-06-09] VITALS (12 sets, daily range): BP systolic 150–201; BP diastolic 90–128; PULSE 69–100; RESP 18–20; TEMP 36.1–36.5; O2SAT 96–100
[2020-06-09] MEDS: hydrALAZINE HCL 20 MG/ML VIAL 10 MG IV PUSH (03:49)
[2020-06-09] MEDS: LABETALOL HCL INJ 100 MG/20 ML VIAL 10 MG IV PUSH (06:40)
[2020-06-09 06:46] LABS: Alanine Aminotransferase 190 U/L (4-50); Alkaline Phosphatase 83 U/L (38-126); Anion Gap 7 mmol/L (8-16); Aspartate Amino Transferase 151 U/L (17-59); Bilirubin,Total 1.2 mg/dL (0.2-1.3); Blood Urea Nitrogen 22 mg/dL (9-20); Calcium 9.1 mg/dL (8.4-10.2); Carbon Dioxide 31 mmol/L (22-30); Chloride 101 mmol/L (98-107); Estimated CRCL calculation 66 ml/min; Estimated Glomerular Filt Rate > 60; Glucose 108 mg/dL (75-110); Potassium 3.8 mmol/L (3.4-5.0); Sodium 139 mmol/L (137-145)
--- NOTE | 2020-06-09 07:00 | ECG_ITS ---
Measurements Intervals [place] Rate: 73 P: 3 AR: 166 QRS: 52 QRSD: 108 T: 158 QT: 400 QTc: 443 Interpretive Statements SINUS RHYTHM LEFT VENTRICULAR HYPERTROPHY WITH ST-T CHANGE T WAVE ABNORMALITY IN ANTEROLAT/HIGH LAT LEADS- CONSIDER ISCHEMIA ABNORMAL ECG Electronically Signed On 06-09-2020 9:29:01 CDT by Connor Rodriguez D.O.
--- NOTE | 2020-06-09 09:38 | PM.CNCAR ---
Assessment and Plan Assessment and plan (1) Prolonged QT interval: Code(s): R94.31 - Abnormal electrocardiogram [ECG] [EKG] Status: Acute Assessment and Plan: Resolved, likely due to acquired cause which was hypokalemia related to alcoholism. (2) Elevated troponin: Code(s): R79.89 - Other specified abnormal findings of blood chemistry Status: Acute Assessment and Plan: Echo already done shows no wall motion abnormality with normal EF. This is due to type II infarct related to seizures, LVH and hypertension. (3) HTN (hypertension): Code(s): I10 - Essential (primary) hypertension Status: Chronic Assessment and Plan: Continue to monitor and adjust BP medications as needed. (4) Alcoholism: Code(s): F10.20 - Alcohol dependence, uncomplicated Status: Chronic Assessment and Plan: Counseled to decrease alcohol intake to no more than 1-2 drinks a day if at all. History of Present Illness History of Present Illness Consult date/time: 06/09/20 09:38 Reason for consult: Prolonged QT interval. 49 yr old man presented to hospital with altered mental status. He has a history of hypertension, dyslipidemia, alcoholism. He speaks only [place], and his is at bedside and his daughter on phone as translators. He was noted by family to not being himself, he bit his tongue and he presumably had a seizure. He does drink significant amount of alcohol at least 12 beers a day. Smokes on occasion. Currently resting in bed without any discomfort or symptoms. It was noted that his potassium was low at 3.0 on admission and repleted by this morning to 3.8. His first 2 initial EKGs shows prolonged QTc at 515 ms and 519 ms. This morning his QT interval has normalized so it is due to low potassium level related to alcoholism. Head CT shows old small right frontoparietal infarct. RUQ U/S shows diffuse hepatic steatosis. CXR is normal. Troponin peaked at 0.3. Ethanol level was elevated at 35. Transaminitis noted that is improving. Normally he bike 6 miles without any problems. Denies chest pain, sob, orthopnea, PND, edema, dizziness, palpitations. No family history of sudden cardiac arrest or syncopes. He does not have this history either. Reason For Visit: Seizure, alcohol abuse, elevated troponin, prolong Review of Systems Review of Systems: All systems reviewed & are unremarkable except as noted in HPI and below Constitutional: Constitutional: Reports as per HPI Cardiovascular: Cardiovascular: Reports as per HPI, Denies chest pain, Denies leg edema and Denies lightheadedness Respiratory: Respiratory: Reports as per HPI and Denies dyspnea Gastrointestinal: Gastrointestinal: Reports as per HPI and Denies abdominal pain Genitourinary: Genitourinary: Reports as per HPI and Denies dysuria Musculoskeletal: Musculoskeletal: Reports as per HPI Neurologic: Reports as per HPI, Denies Abnormal speech present and Denies headache(s) [facility] Past Medical History Medical History (Updated 06/08/20 @ 18:26 by Donny Black MD) Alcoholism CVA (cerebral vascular accident) HTN (hypertension) Right wrist fracture Tobacco abuse Surgical History Surgical History (Updated 06/06/20 @ 16:12 by Princess Plascencia NP) H/O abdominal surgery the patient stated that horse bucked him off Family History Family History Mother Cancer Father Hypercholesteremia Social History Social History (Updated 06/06/20 @ 16:13 by Princess Plascencia NP) Social History: 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 He is listed as being . He is listed as being a full code. The patient tells me that he drinks 12 beers a day. He denies any marijuana or illicit drug use. Smoking packs per day: 0.1 Smoking cigarettes per day: 2.0 Smoking status: Current some day smoker Tobacco type: cigarettes Se
[2020-06-09] MEDS: hydroCHLOROthiazide 12.5 MG CAPSULE PO (10:05)
[2020-06-09] MEDS: levETIRAcetam Tablet 250 MG, levETIRAcetam Tablet 500 MG 750 MG PO (10:05)
[2020-06-09] MEDS: FOLIC ACID 1 MG TABLET PO (10:06)
[2020-06-09] MEDS: ASPIRIN 81 MG CHEWABLE TABLET PO (10:06)
[2020-06-09] MEDS: hydrALAZINE HCL 25 MG TABLET PO ×2 (10:06→14:03)
[2020-06-09] MEDS: amLODIPine BESYLATE 5 MG TABLET 10 MG PO (10:06)
[2020-06-09] MEDS: LOSARTAN POTASSIUM 100 MG TABLET PO (10:06)
[2020-06-09] MEDS: THIAMINE HCL 100 MG TABLET PO (10:06)
--- NOTE | 2020-06-09 12:24 | PM.DS ---
DS: Admitting Diagnosis Admitting Diagnosis Admitting Diagnosis: Seizure, alcohol abuse, elevated troponin, prolong DS: Discharge Diagnosis Discharge Diagnosis (1) Seizure: Code(s): R56.9 - Unspecified convulsions Status: Acute Assessment and Plan: Patient has no previous history of having a seizure. Most likely this is alcohol-related seizure. He has had hx of CVA by CT so possibly new onset sz disorder. Neurology was consulted and recommended continuing the Keppra. Through the manager ent, patient was educated that he cannot drive. He voiced understanding of this. Continue Keppra at discharge (2) Prolonged QT interval: Code(s): R94.31 - Abnormal electrocardiogram [ECG] [EKG] Status: Acute Assessment and Plan: Repeat EKG 06/07 showing persistent prolonged QTc 515. Not taking medications that could result in this. Echo showing evidence of LVH. Potassium low and this was replaced. Repeat EKG showing normal QT. Cardiology felt related to hypokalemia from alcoholism. (3) Alcoholism: Code(s): F10.20 - Alcohol dependence, uncomplicated Status: Chronic Assessment and Plan: The patient stated he drinks about 12-18 beers a day every day. His alcohol level was 35 on admission. CIWA running 0-1 now. Started on thiamine and folate. Patient has been educated about the benefits of abstaining from alcohol use. Also explained to him that the anti seizure medication will not work if he continues to drink. He voiced understanding of this through the manager ent. Explained through the interpretor that he is developing liver disease most likely related to his alcohol use. He again voices understanding of this. (4) Elevated troponin: Code(s): R79.89 - Other specified abnormal findings of blood chemistry Status: Acute Assessment and Plan: Patient's troponin has climbed to 0.3. Elevated Trop probably related to the elevated BP and seizure. EKG showing prolonged QT 519. Mag 2.2. Potassium low at 3 and this was replaced. Repeat EKG showing improved QT level with T wave changes in the anterolateal leads. TG 214, TC 344, LDL 233, HDL 66. Lipitor held given the elevated liver tests. Aspirin started. no beta blockers. He will need to follow up with cardiology. (5) HTN (hypertension): Code(s): I10 - Essential (primary) hypertension Status: Chronic Assessment and Plan: BP markedly elevated at times to 222/122. His losartan has gustavo continued. He is receiving IV hydralazine at times. We added Norvasc, HCTZ and Hydralazine. No beta january given the QT findings. BP better now. (6) Elevated LFTs: Code(s): R79.89 - Other specified abnormal findings of blood chemistry Status: Acute Assessment and Plan: AST and ALT elevated on admission. Levels improved but then worsened possibly related to extremely high BP and congestion. Hepatitis panel negative. RUQ showing diffuse hepatic steatosis related to alcohol abuse. Levels trending down now. Repeat as outpatient (7) Tobacco abuse: Code(s): Z72.0 - Tobacco use Status: Chronic Assessment and Plan: Patient was educated about the benefits of smoking cessation through the manager ent. (8) CVA (cerebral vascular accident): Code(s): I63.9 - Cerebral infarction, unspecified Status: Acute Assessment and Plan: CT of the brain showing old CVA. No acute findings. Aspirin started. DS: Summary Hospital Course Reason for hospitalization: 49-year-old male with history of alcohol abuse here for seizures and found to have elevated troponin. Please see H&P for details Hospital Course: As above Time Spent with Patient Time attestation: Total time spent providing and/or coordinating discharge services: 38 minutes Time spent: Greater than 30 minutes Specific discharge activities: Discussed in great detail with the patient and
== END 2020-06-09 15:00 | disposition home or self-care (01) | DRG 101 ==
LOC: ANHED 10:34 → ANHIMU 15:11
PROVIDERS: Nurse Practitioner; Admitting Provider Family Medicine; Emergency Provider Emergency Medicine; Visit Provider Internal Medicine
DX: R56.9 Unspecified convulsions (principal); F10.20 Alcohol dependence, uncomplicated; R94.31 Abnormal electrocardiogram [ECG] [EKG]; E87.6 Hypokalemia; I10 Essential (primary) hypertension; K70.9 Alcoholic liver disease, unspecified; E78.5 Hyperlipidemia, unspecified; F17.210 Nicotine dependence, cigarettes, uncomplicated; Z86.73 Personal history of transient ischemic attack (TIA), and cerebral infarction without residual deficits
CPT/HCPCS: 36415; 36600; 70450; 71046; 76705; 80053; 80061; 80074; 80307; 81001; 82550; 82805; 83605; 83615; 83735; 84100; 84443; 84484; 85025; 85027; 85610; 85730; 93005; 93306; 95816; 96360; 99285; A9270; J0360; J1650; J1953; J2060; J3475; J7030; J7120

== ENCOUNTER 2020-06-17 06:43 | Outpatient (NON) | payer BC, SELFPAY ==
[2020-06-18 14:21] LABS: SARS-CoV-2 RNA PCR Positive
== END 2020-06-17 06:44 ==
PROVIDERS: Visit Provider Emergency Medicine
DX: U07.1 COVID-19 (principal)
CPT/HCPCS: 87635; C9803; U0003

== ENCOUNTER 2020-06-29 10:30 | Outpatient (CLI) | payer BC, SELFPAY ==
--- NOTE | 2020-06-29 11:02 | EST_ITS ---
Patient Info Name: Skinny Russell Age: 49 years : 1970 Gender: Male Ht: 65 in Wt: 180 lbs BSA: 1.96 m2 Exam Date: 06/29/2020 11:09 AM Exam Location: [facility] Patient Status: Outpatient Admit Date: 06/29/2020 Staff Ordering Physician: Connor Skinner DO Bank Officer: Dimas Miramontes RDCS, RT Attending Provider: CONNOR SKINNER Referring Physician: Michael GUY; Exercise Technologist: Dimas Miramontes RDCS RT Exercise Physician: Connor Skinner DO Exam Type: CA stress echo Study Info Indications R07.9 - Chest pain, unspecified Treadmill exercise stress echocardiogram is performed. Summary 1. 1. Negative Kemar exercise stress test for ischemic ST changes by ECG criteria. 2. 2. Good functional capacity, achieving 12 METs of workload. 3. 3. Baseline hypertension with hypertensive response to exercise. 4. 4. Appropriate HR response to exercise. 5. 5. Appropriate HR recovery at 1 minute post exercise. 6. 6. Negative stress echocardiogram for ischemia by wall motion analysis. 7. 7. Patient informed of the above results via a remote tranlator. Stress Echo Findings Left Ventricle Appropriate increase in LV endocardial thickening with systole. Appropriate augmentation of contractility with systole. No wall motion abnormality. Left Ventricle Normal LV systolic function, no wall motion abnormality. Protocol: Kemar Stress ECG Details Stage: REST Duration (min): 1 min : 56 sec Speed (mph): 0.0 Grade (%): 0 HR (bpm): 56 SBP (mmHg): 173 DBP (mmHg): 109 METS: --- Stage: REST Duration (min): 10 min : 53 sec Speed (mph): 0.0 Grade (%): 0 HR (bpm): 58 SBP (mmHg): 167 DBP (mmHg): 109 METS: --- Stage: STAGE 1 Duration (min): 1 min : 0 sec Speed (mph): 1.7 Grade (%): 10 HR (bpm): 90 SBP (mmHg): 167 DBP (mmHg): 109 METS: --- Stage: STAGE 1 Duration (min): 2 min : 0 sec Speed (mph): 1.7 Grade (%): 10 HR (bpm): 96 SBP (mmHg): 167 DBP (mmHg): 109 METS: --- Stage: STAGE 1 Duration (min): 3 min : 0 sec Speed (mph): 1.7 Grade (%): 10 HR (bpm): 93 SBP (mmHg): 178 DBP (mmHg): 90 METS: --- Stage: STAGE 2 Duration (min): 1 min : 0 sec Speed (mph): 2.5 Grade (%): 12 HR (bpm): 108 SBP (mmHg): 178 DBP (mmHg): 90 METS: --- Stage: STAGE 2 Duration (min): 2 min : 0 sec Speed (mph): 2.5 Grade (%): 12 HR (bpm): 116 SBP (mmHg): 186 DBP (mmHg): 81 METS: --- Stage: STAGE 2 Duration (min): 3 min : 0 sec Speed (mph): 2.5 Grade (%): 12 HR (bpm): 117 SBP (mmHg): 186 DBP (mmHg): 81 METS: --- Stage: STAGE 3 Duration (min): 1 min : 0 sec Speed (mph): 3.4 Grade (%): 14 HR (bpm): 131 SBP (mmHg): 208 DBP (mmHg): 88 METS: --- Stage: STAGE 3 Duration (min): 2 min : 0 sec Speed (mph): 3.4 Grade (%): 14 HR (bpm): 136 SBP (mmHg): 208 DBP (mmHg): 88 METS: --- Stage: S
== END 2020-06-29 10:31 | disposition home or self-care (01) ==
PROVIDERS: Visit Provider Internal Medicine Cardiovascular Disease
DX: R06.00 Dyspnea, unspecified (principal)
CPT/HCPCS: 93351

== ENCOUNTER 2024-02-01 17:37 | Emergency (ER) | payer OTHER, SELFPAY ==
--- NOTE | ~2024-02-01 | XR_ITS ---
Portable chest x-ray Comparison: 06/08/2020 Clinical History: CVA Findings: Lungs are clear, without focal consolidation or pleural effusion. Cardiomediastinal silho uette is mildly prominent, possibly due to AP technique. Bones and soft tissues are unremarkable. Impression: Clear lungs. Reviewed, dictated and finalized at location . Impression: Clear lungs.
--- NOTE | ~2024-02-01 | CT_ITS ---
Non-contrast Head CT History: CVA COMPARISON: 05/17/2020 Technique: Axial non-contrast imaging of the brain was performed. Dose reduction technique was used on this scan by utilizing automated exposure control and iterative reconstruction technique. The dose -length product (DLP) was 681.00 mGy-cm. Findings: There is acute parenchymal hemorrhage centered in the left basal ganglia, parietal hematoma measuring 3.2 x 2.7 x 3.0 cm in extent. There is intraventricular extension acute hemorrhage into th e left lateral ventricle. Mass effect results in local rightward midline shift of up to approximately 8 mm. Focal old right parietal lobe infarct noted. There is a punctate hyperdensity in the region of the left sylvian fissure, which could reflect tiny focus of additional hemorrhage (axial image 28). No ventricular dilatation evident. The visualized paranasal sinuses and mastoid air cells are clear. Impression: 3.2 x 2.7 x 3.0 cm acute parenchymal hematoma centered in the left basal ganglia. Intraventricular extension acute hemorrhage into the left lateral ventricle. Mass effect results in local rightward midline shift of up to 8 mm. Additional punctate hyperdensity in the left sylvian fissure could reflect an additional tiny focus o f hemorrhage. Stable focal old right parietal lobe infarct. Case discussed with Dr. Cowan at 6:00 PM on 02/01/2024. Reviewed, dictated and finalized at location . Impression: 3.2 x 2.7 x 3.0 cm acute parenchymal hematoma centered in the left basal gangli a. Intraventricular extension acute hemorrhage into the left lateral ventricle. Mass effect results in local rightward midline shift of up to 8 mm. Additional punctate hyperdensity in the left sylvian fissure could reflect an a dditional tiny focus of hemorrhage. Stable focal old right parietal lobe infarct. Case discussed with Dr. Cowan at 6:00 PM on 02/01/2024.
--- NOTE | ~2024-02-01 | CT_ITS ---
CT ANGIOGRAM NECK AND HEAD History: CVA, intracranial hemorrhage. Technique: Serial spiral axial images through the head and neck were obtained during arterial phase I V injection of 100 cc of Omnipaque 350. 3-D postprocessing and MIP images were then reconstructed on the remote workstation. Dose reduction technique was used on this scan by utilizing automated exposur e control and iterative reconstruction technique. The dose-length product (DLP) was 2149.69 mGy-cm. CTA neck findings: Timing of the contrast bolus significantly limits evaluation. Bilateral vertebral arteries appear patent, without definite stenosis or occlusion. Bilateral common carotid, internal c arotid, and external carotid arteries appear patent. There is a probable high-grade, focal 80% stenos is at the proximal left internal carotid artery with prominent calcified plaque present. There is ricardo cified plaque at the proximal right internal carotid artery, with minimal stenosis of approximately 1 0%. No aneurysms are identified. The proximal right internal carotid artery demonstrates 10% stenosis relative to the normal distal artery lumen diameter. The proximal left internal carotid artery demon strates 80% stenosis relative to the normal distal artery lumen diameter. CTA head findings: Exam significantly degraded by motion artifact, especially inferiorly. Visualized basilar artery and posterior cerebral arteries are patent. Distal internal carotid arteries, middle c erebral arteries, and anterior cerebral arteries are patent. No large vessel occlusion. No stenosis o r aneurysm identified. There is appearance of active extravasation into the parenchymal hemorrhage centered in the left basa l ganglia (series 3 images [id number]). Impression: Limited examination of the neck due to timing of the contrast bolus. Probable focal high-grade 80% stenosis at the proximal left internal carotid artery. No significant vascular abnormality evident otherwise. Evidence of active extravasation to the parenchymal hemorrhage centered in the left basal ganglia, as detailed above. Case discussed with Dr. Cowan at 6:30 PM on 02/01/2024. Reviewed, dictated and finalized at location M. Impression: Limited examination of the neck due to timing of the contrast bolus. Probable focal high-grade 80% stenosis at the proximal left internal carotid ar kelly. No significant vascular abnormality evident otherwise. Evidence of active extravasation to the parenchymal hemorrhage centered in the left basal ganglia, as detailed above. Case discussed with Dr. Cowan at 6:30 PM on 02/01/2024.
--- NOTE | 2024-02-01 17:41 | ECG_ITS ---
SEE SCANNED COPY FOR CONFIRMED REPORT MTDD
[2024-02-01 17:52] LABS: Glucose Point of Care 89 mg/dl (65-105)
[2024-02-01 17:56] LABS: Basophils Absolute Auto 0.1 K/mm3 (0.0-0.1); Basophils Percent Auto 1.1 % (0.2-1.2); Eosinophils Absolute Auto 0.3 K/mm3 (0-0.3); Eosinophils Percent Auto 2.8 % (0-4.4); Hematocrit 46.2 % (42.0-52.0); Hemoglobin 16.2 g/dL (14.0-18.0); Immature Granulocyte Absolute 0.03 K/mm3 (0.00-0.031); Immature Granulocyte Percent A 0.3 % (0-0.5); Lymphocytes Absolute Auto 2.87 K/mm3 (0.9-3.2); Lymphocytes Percent Auto 32.2 % (18.3-44.2); Mean Corpuscular HGB Conc 35.1 g/dl (32-36); Mean Corpuscular Hemoglobin 31.1 pg (26-34); Mean Corpuscular Volume 88.7 fl (80-100); Mean Platelet Volume 10.2 fl (7.4-10.4); Monocytes Absolute Auto 0.8 K/mm3 (0.1-0.6); Monocytes Percent Auto 9.2 % (2.6-8.5); Neutrophils Absolute Auto 4.9 K/mm3 (1.3-6.7); Neutrophils Percent Auto 54.4 % (45.5-73.1); Platelet Count Result 260 k/mm3 (150-375); Red Blood Count 5.21 M/mm3 (4.6-6.20); Red Cell Distribution Width 13.2 % (11.5-14.5); White Blood Count 8.9 K/mm3 (4.5-10.0)
--- NOTE | 2024-02-01 17:59 | ED.NEUROSD ---
HPI - Neuro Symptoms/Deficit General Chief Complaint: Suspected CVA Stated Complaint: Numbness to Face, Possible Stroke Time Seen by Provider: 02/01/24 17:53 History of Present Illness HPI Narrative: Patient is a 53-year-old male with history of CVA, seizures, CAD alcohol use disorder, HTN, non compliant with all medications here with stroke like symptoms. Patient reportedly was normal earlier today. Around 2:30 p.m. he walked into the bathroom where his was and he looked as though his eyes were going to roll into the back of his head and he was going to pass out. noted that he had a facial droop on the right side as well as weakness of his right arm and leg. He was very reluctant to come into the emergency department and eventually they were able to force him into the car bring him into the emergency department. Family notes that he takes none of his medications and instead drinks daily. They do note that he had seizure-like activity approximately 2 weeks ago, did not come to the emergency department to get seen. He does not take his Keppra, blood pressure medications. He is not prescribed any blood thinners that there where of. Related Data Home Medications Medication Instructions Recorded Confirmed losartan 50 mg tablet 50 mg PO DAILY 12/29/20 04/19/21 Allergies Allergy/AdvReac Type Severity Reaction Status Date / Time No Known Allergies Allergy Unknown Verified 04/19/21 14:29 Review of Systems Review of Systems: ROS unobtainable: Yes unobtainable due to mental status PMFSH Past Medical History Medical History Alcoholism CVA (cerebral vascular accident) HTN (hypertension) Right wrist fracture Tobacco abuse Surgical History Surgical History H/O abdominal surgery the patient stated that horse bucked him off Family History Family History Mother Cancer Father Hypercholesteremia Social History Social History Social History: 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 He is listed as being . He is listed as being a full code. The patient tells me that he drinks 12 beers a day. He denies any marijuana or illicit drug use. Smoking packs per day: 0.1 Smoking cigarettes per day: 2.0 Smoking status: Former smoker Tobacco type: cigarettes Second hand tobacco smoke exposure: No Alcohol intake: current Drinks per week: 84 Substance use: never Substance use type: does not use Gender identity (if verbalized by the patient): Male Spiritual care concerns: No Exam Narrative: GENERAL: Well-appearing, well-nourished, and in no acute distress. HEAD: Normocephalic, atraumatic. Right-sided facial droop. Denies sensory deficit EYES: PERRLA and EOMI. ENT: Nares clear. Mucous membranes moist. NECK: Supple. CHEST: Clear to auscultation. No respiratory distress. HEART: Regular rate and rhythm. Normal peripheral pulses. ABDOMEN: Soft, nontender, nondistended. EXTREMITIES: Normal range of motion. No edema. SKIN: Warm, dry, no rash. NEURO: Right-sided facial droop, no effort against gravity with the right upper or lower extremity. He denies sensory deficits. He is aphasic and does not answer any questions. No obvious visual field deficit is appreciated. PSYCH: Normal mood and affect. Course Course Emergency Course: Patient seen evaluated at stroke. On arrival. Last known normal 2:30 p.m.. Patient taken to CT scan. Additional history is obtained from family. On initial discussion regarding risks versus benefits of tPA he is just briefly inside the window, family would like to proceed with tPA should it be indicated. In review of the CT scan it appears he has a left-sided intraparenchymal hemorrhagic stroke. TPA is contraindicated. CTA added
[2024-02-01 18:07] LABS: Alanine Aminotransferase 19 U/L (6-50); Albumin Level 4.5 g/dL (3.5-5.1); Alkaline Phosphatase 121 U/L (38-126); Anion Gap 7 mmol/L (4-12); Aspartate Amino Transferase 32 U/L (17-59); Bilirubin,Total 0.8 mg/dL (0.2-1.3); Blood Urea Nitrogen 27 mg/dL (9-20); Calcium 9.3 mg/dL (8.4-10.2); Carbon Dioxide 27 mmol/L (22-30); Chloride 105 mmol/L (98-107); Estimated Glomerular Filt Rate 58; Glucose 87 mg/dL (65-110); Sodium 139 mmol/L (137-145)
[2024-02-01 18:08] LABS: INR 0.9; Prothrombin Time 12.7 Seconds (11.1-14.7)
[2024-02-01 18:09] LABS: Partial Thromboplastin Time 28.5 Seconds (22.3-36.8)
[2024-02-01] MEDS: hydrALAZINE HCL 20 MG/ML VIAL IV PUSH ×2 (18:13→18:37)
[2024-02-01 18:28] VITALS: BP 242/141; PULSE 79
[2024-02-01 18:28] LABS: Troponin I 0.074 ng/mL (0.000-0.034)
[2024-02-01] MEDS: niCARdipine 20 MG/200 ML 20 MG/200 ML BAG 50 MG IV CONT (18:28)
[2024-02-01] MEDS: levETIRAcetam 1000MG/NACL100ML 1,000 MG/100 ML BAG 400 MG IVPB (18:28)
[2024-02-01 18:39] VITALS: BP 244/131; PULSE 76; RESP 20; TEMP 36.3; O2SAT 20; O2SAT 97
[2024-02-01] MEDS: LORazepam INJ (*CRX) 2 MG/ML VIAL IV PUSH (18:39)
[2024-02-01 19:10] VITALS: BP 194/111
[2024-02-01 19:13] VITALS: PULSE 84
== END 2024-02-01 19:18 | disposition short-term general hospital (02) ==
PROVIDERS: Emergency Provider Student in an Organized Health Care Education/Training Program
DX: I62.9 Nontraumatic intracranial hemorrhage, unspecified (principal); T50.916A Underdosing of multiple unspecified drugs, medicaments and biological substances, initial encounter; Z91.128 Patient's intentional underdosing of medication regimen for other reason; I25.10 Atherosclerotic heart disease of native coronary artery without angina pectoris; G40.909 Epilepsy, unspecified, not intractable, without status epilepticus; I10 Essential (primary) hypertension; F10.20 Alcohol dependence, uncomplicated; Z86.73 Personal history of transient ischemic attack (TIA), and cerebral infarction without residual deficits; Z87.891 Personal history of nicotine dependence; R94.31 Abnormal electrocardiogram [ECG] [EKG]
CPT/HCPCS: 36415; 70450; 70496; 70498; 71045; 80053; 82948; 84484; 85025; 85610; 85730; 93005; 96365; 96375; 99291; J0360; J1953; J2060; J2404; Q9967